=== PATIENT | female | born 1975 | race Caucasian/White ===

== ENCOUNTER → 2017-06-15 | Outpatient (CLI) | payer BC ==
[~2017-06-15] MED LIST: ACET-1256 PO
--- NOTE | 2017-06-15 09:57 | DIAGNOSTIC IMAGING REPORT ---
LEFT ANKLE 3 VIEWS CLINICAL HISTORY: Left ankle pain and swelling. Fall several days ago. FINDINGS: 3 views of the left ankle are obtained. No prior studies are available for comparison at the time of dictation. The skeletal structures are well mineralized. No fracture is seen. The ankle mortise is intact. An os trigonum is incidentally noted. There is a dorsal calcaneal enthesophyte. Joint effusion is identified. Mild soft tissue swelling is present around ankle. IMPRESSION: Soft tissue swelling and joint effusion. There is no radiographic evidence of left ankle fracture. Electronically signed by: Lion Fischer M.D. 06/15/2017 9:56 AM Dictated Date/Time: 06/15/2017 9:55 AM
== END | disposition home or self-care (01) ==
LOC: C.RAD1850 09:40
PROVIDERS: ATTEND Nurse Practitioner Family
DX: M25.572 Pain in left ankle and joints of left foot (principal); R22.42 Localized swelling, mass and lump, left lower limb